=== PATIENT | male | born 1985 | race Caucasian/White ===

== ENCOUNTER 2017-01-31 09:32 | Emergency (ER) | payer MEDICARE ==
[2017-01-31] MEDS ORDERED: TRAZODONE HCL100 M1 PO ×2 (09:48→10:32)
[2017-01-31] MEDS ORDERED: BUSPIRONE HCL15 M2 PO ×2 (09:48→10:32)
[2017-01-31] MEDS ORDERED: CLEOCIN HCL300 M1 PO (10:32)
== END 2017-01-31 10:41 ==
LOC: EDMED 09:32
DX: S39.011A Strain of muscle, fascia and tendon of abdomen, initial encounter (principal); K05.10 Chronic gingivitis, plaque induced; F41.9 Anxiety disorder, unspecified; Z88.0 Allergy status to penicillin; F17.200 Nicotine dependence, unspecified, uncomplicated; X58.XXXA Exposure to other specified factors, initial encounter

== ENCOUNTER 2017-02-08 11:36 | Emergency (ER) | payer MEDICARE ==
[~2017-02-08 11:36] MED LIST: BUSPIRONE HCL15 M2 PO; CLEOCIN HCL300 M1 PO; TRAZODONE HCL100 M1 PO
[2017-02-08] MEDS ORDERED: BUSPIRONE HCL15 M2 PO (11:57)
== END 2017-02-08 12:00 ==
LOC: EDMED 11:36
DX: F41.9 Anxiety disorder, unspecified (principal); Z88.0 Allergy status to penicillin